=== PATIENT | female | born 1935 | race African-American/Black ===

== ENCOUNTER 2019-10-23 19:09 | Inpatient (IN) | payer MEDICARE ==
[~2019-10-23] VITALS: Ht 162.6 cm; Wt 47.6 kg
--- NOTE | 2019-10-23 19:48 | NUR ---
JEFF FROM [facility] SONIDO REEVES. PT IS RESIDENT OF [facility] AND WAS BROUGHT IN FOR ERRATIC BEHAVIOR. PT IS FOR HOLD AND ADMISSION TO [facility]. PT IS MEDICALLY CLEARED. PT IS CURRENTLY CALM. NO NOTED DISTRESS. COOPERATIVE AND COMPLIANT. WAS AT BEDSIDE FOR EVAL. AWAITING FURTHER ORDERS
--- NOTE | 2019-10-23 20:32 | NUR ---
CALLED FOR GPS BED
--- NOTE | 2019-10-23 23:18 | NUR ---
PT SON ON PHONE WITH PINKY.
--- NOTE | 2019-10-23 23:26 | NUR ---
REPORT GIVEN TO LNYN CONWAY FOR [facility]
--- NOTE | 2019-10-24 00:16 | NUR ---
PT TRANSPORTED TO UNIT ON [facility] BY EMT. PT IS IN STABLE CONDITION FOR TRANSPORT.
[2019-10-24] MEDS ORDERED: MAGNESIUM HYDROXIDE 30 ML UDC PO PRN (01:00)
[2019-10-24] MEDS ORDERED: MAG HYDROX/AL HYDROX/SIMETH 30 ML UDC PO PRN (01:00)
[2019-10-24] MEDS ORDERED: clonazePAM 0.5 MG TABLET PO PRN (01:00)
[2019-10-24] MEDS ORDERED: TEMAZEPAM 7.5 MG CAPSULE PO PRN (01:00)
[2019-10-24] MEDS ORDERED: ACETAMINOPHEN 325 MG TABLET PO PRN (01:00)
[2019-10-24] MEDS ORDERED: CHOL200076 PO (01:25)
[2019-10-24] MEDS ORDERED: SODI100037 PO (01:25)
[2019-10-24] MEDS ORDERED: BLOOD SUGAR DIAGNOSTIC 1 EACH STRIP IN ONE (01:30)
[2019-10-24 01:36] VITALS: BP 132/75
--- NOTE | 2019-10-24 02:04 | NUR ---
RN NOTES: PT. REFUSED TO INTIALLY BLOOD SUGAR CHECK , ENCOURAGED X 3 STILL STRONGLY REFUSED , PT. BEHAVIOR VERY UNCOOPERTIVE AND AGGRESSIVE.
--- NOTE | 2019-10-24 02:05 | NUR ---
ADMISSION NOTES: ADMITTED THIS 84Y/O FEMALE PATIENT ADMIT FROM [facility] ,ER / INTIALLY FROM [facility], ADMITTED TO GPS ON 5150 HOLD, PER HOLD GRAVELY DISABLE AND INCREASED AGITATION, ERRATIC BEHAVIOR AND INCREASED CONFUSIONS ,PT. HAS BEEN CALLING 911 MULTIPLE TIMES DAILY ,UPON FACE TO FACE ASSESSMENT PATIENT IS A&O X1,2 , CONFUSED ,FORGETFUL ,DISORGNIZED, UNCOOPERTIVE ,EASILY GETS AGITATED, DENIES SI /HI AT THIS TIME, PT. IS POOR HISTORIAN, POOR INSIGHT ,POOR JUDGEMENT , PT. REFUSED TO SIGNS ADMISSION CONSENT PAPERS , DUE TO CONFUSED/ UNCOOPERATIVE, PT. REFUSED INTITAALY BLOOD SUGAR CHECK , ENCOURAGED, EXPLAINED RISKS AND BENEFITS STILL REFUSED, PER PT. I DONT WANTS CHECK AT THIS TIME , BOTH MD AWARE AND NOTIFIED OF THE ADMISSION, BELONGINGS CONTRABAND WERE DONE , NURSING ASSESSMENT DONE ,PT. RIGHTS DISCUSS BY FOLD SKIVER , PROVIDE THE PT. WITH HANDBOOK, AND MEDICATIONS GUIDE, ENVIRONMENTAL SAFETY CHECK DONE, ENCOURAGED PT. VERBALIZED ANY FEELING CONCERN TO STAFF, ORIENT TO UNIT POLICY, NO ACUTE DISTRESS NOTED,VITAL SIGNS WNL ,DENIES ANY PAIN AT THIS TIME,WILL CONTINUE TO MONITOR FOR Q15 SAFETY AND BEHAVIOR.
[2019-10-24 08:00] VITALS: BP 141/77
[2019-10-24] MEDS: ENSURE ENLIVE CHOC 237 ML CAN PO SCH ×2 (08:19→17:00)
[2019-10-24] MEDS: CHOLECALCIFEROL 1,000 UNIT TABLET (VIT D3) PO SCH (10:30)
[2019-10-24] MEDS: OLANZAPINE 5 MG/TAB.RAPDIS PO SCH ×2 (10:30→17:00)
[2019-10-24] MEDS: SODIUM CHLORIDE 1000 MG TABLET PO SCH ×2 (13:00→17:38)
--- NOTE | 2019-10-24 14:48 | NUR ---
GPS/RN PT REFUSED MEDS TODAY OFFERED ON NUMEROUS OCCASIONS. PT IS ARGUMENTATIVE AND DISORGANIZED
[2019-10-24 16:00] VITALS: BP 136/76
--- NOTE | 2019-10-24 17:39 | NUR ---
GPS/RN PT REFUSED MEDS OFFERED X3. PT'S SON AT THE BEDSIDE.
[2019-10-24 19:55] VITALS: BP 110/51
[2019-10-24 22:00] VITALS: BP 112/65
[2019-10-25 08:00] VITALS: BP 127/98
[2019-10-25] MEDS: ENSURE ENLIVE CHOC 237 ML CAN PO SCH (08:00)
[2019-10-25 08:06] LABS: BASOPHILS % (AUTO) 0.9 % (0.0-2.0); EOSINOPHILS % (AUTO) 3.9 % (0.0-6.0); HEMATOCRIT 47 % (33-45); HEMOGLOBIN 15.5 g/dL (11.5-14.8); LYMPHOCYTES # (AUTO) 0.9 /CMM (0.8-4.8); LYMPHOCYTES % (AUTO) 18.1 % (20.0-44.0); MEAN CORPUSCULAR HGB CONC 33 g/dl (31.0-36.0); MEAN CORPUSCULAR VOLUME 98 fL (82-100); MONOCYTES # (AUTO) 0.6 /CMM (0.1-1.30); MONOCYTES % (AUTO) 10.8 % (2.0-12.0); NEUTROPHILS # (AUTO) 3.4 /CMM (1.8-8.9); NEUTROPHILS % (AUTO) 66.3 % (43.0-81.0); PLATELET COUNT (AUTO) 233 /CMM (150-450); RED BLOOD CELL COUNT(AUTO) 4.77 MIL/uL (4.0-5.2); WHITE BLOOD COUNT (AUTO) 5.2 K/uL (4.3-11.0)
[2019-10-25 08:29] LABS: ALBUMIN 3.4 g/dL (3.4-5.0); BILIRUBIN,TOTAL 0.5 mg/dL (0.2-1.0); CALCIUM, SERUM 10.3 mg/dL (8.5-10.1); CREATININE 0.9 mg/dL (0.6-1.3); POTASSIUM 4.2 mmol/L (3.5-5.1); TOTAL PROTEIN, SERUM 8.4 g/dL (6.4-8.2)
[2019-10-25] MEDS: OLANZAPINE 5 MG/TAB.RAPDIS PO SCH ×2 (08:34→17:12)
[2019-10-25] MEDS: CHOLECALCIFEROL 1,000 UNIT TABLET (VIT D3) PO SCH (08:34)
[2019-10-25] MEDS: SODIUM CHLORIDE 1000 MG TABLET PO SCH ×3 (08:34→17:12)
--- NOTE | 2019-10-25 12:46 | NUR ---
RN NOTE- PT REFUSING ENSURE. STATES SHE DOESN'T LIKE IT. KITCHEN NOTIFIED. WILL TELL
[2019-10-25 16:00] VITALS: BP 100/79
[2019-10-25 20:27] VITALS: BP 128/74
--- NOTE | 2019-10-26 00:15 | NUR ---
PT IS NON COOPERATIVE, REFUSED SKIN CHECK @ 8856.
[2019-10-26] MEDS: SODIUM CHLORIDE 1000 MG TABLET PO SCH ×3 (07:40→17:04)
[2019-10-26 08:00] VITALS: BP 143/75
[2019-10-26] MEDS: OLANZAPINE 5 MG/TAB.RAPDIS PO SCH ×2 (08:06→17:00)
[2019-10-26] MEDS: CHOLECALCIFEROL 1,000 UNIT TABLET (VIT D3) PO SCH (08:06)
--- NOTE | 2019-10-26 14:00 | NUR ---
FAMILY CONTACT: SW contacted pts son Temo [phone] and left a voicemail for callback to discuss pts treatment and discharge plan.
[2019-10-26 16:00] VITALS: BP 152/85
--- NOTE | 2019-10-26 16:15 | NUR ---
FACILITY CONTACT: SW contacted [facility] Address: [address] [place] [address] and spoke with Malissa, account administrator who stated that pt has a long history of mental illness and states that pt is very paranoid and was at the [facility] high risk locked unit for 8 months and was previously conserved by her granddaughter. She states that pts son is homeless and not too involved with pts care. Malissa states that pt may not be able to return as the facility is unable to handle her erratic paranoid behavior and constantly calling 911.
--- NOTE | 2019-10-26 16:21 | NUR ---
INITIAL DISCHARGE NOTE: Pt does not want to return to [facility] [address] Address: [address] [place] [address] . Per Malissa, salesforce administrator the facility is unable to handle pts erratic and paranoid behavior. SW is exploring SNF placement or alternative assisted living placement. FELIPE will help form a safe and proper discharge in collaboration with .
[2019-10-26 20:07] VITALS: BP 142/77
[2019-10-27 08:00] VITALS: BP 147/92
[2019-10-27] MEDS: CHOLECALCIFEROL 1,000 UNIT TABLET (VIT D3) PO SCH (08:18)
[2019-10-27] MEDS: SODIUM CHLORIDE 1000 MG TABLET PO SCH ×3 (08:18→17:54)
[2019-10-27] MEDS: OLANZAPINE 5 MG/TAB.RAPDIS PO SCH ×2 (08:22→17:00)
--- NOTE | 2019-10-27 09:32 | NUR ---
WOUND CARE CONSULT: PT REFUSED SKIN ASSESSMENT. PT IS CONTINENT AND AMBULATORY. ADMISSION PHOTOS SHOW PIGMENT IRREGULARITIES. WILL SEE PRN.
--- NOTE | 2019-10-27 14:41 | NUR ---
FAMILY CONTACT: SW spoke with pts son Temo [phone] and informed him that pt does not want to return to the assisted living, son states that he is aware and wishes for SW to assist with pts placement. SW informed him that she will be collaborating with a placement agent and son agreed.
--- NOTE | 2019-10-27 14:50 | NUR ---
PLACEMENT: SW received a call from Kimberly Arnold, placement agent [phone] who states she will be assisting SW with placement for pt and states that she is currently collaborating with Malissa, administer at pts assisted living.
--- NOTE | 2019-10-27 15:53 | NUR ---
GROUP NOTE: FELIPE encouraged pt to attend group on this present day discussing "unstable mood" Pt refused to attend stating, "It's no ones business to hear about how I am doing." FELIPE provided individual intervention and asked pt how she was feeling today. Pt states she is sad because her roommate left today and she will be alone with no one to talk to. Pt also states that she does not need to be here and wants to be discharged soon but is aware that SW is trying to assist with placement. FELIPE informed her that SW spoke with her son regarding her placement and that he wishes to be notified as soon as placement is found to ensure pt will be okay at her new facility. Pt states that she now feels better knowing she wont have to return to the assisted living she came from.
[2019-10-27 16:00] VITALS: BP 148/79
--- NOTE | 2019-10-27 17:27 | NUR ---
RN NOTE- POLICE ARRIVED TO UNIT. PT HAD CALLED POLICE AND REPORTED THAT SHES NOT "RECEIVING HER MEDICATIONS" AND OTHER COMPLAINTS. SECURITY ON SITE. UPDATED POLICE ON PT SITUATION AND STATUS. GUM REMOVER AWARE AND CONCURS. POLICE AND SECURITY INTERVIEWING PT IN SECLUSION ROOM.
[2019-10-27 19:35] VITALS: BP 155/93
[2019-10-28 08:00] VITALS: BP 130/79
--- NOTE | 2019-10-28 08:16 | NUR ---
PLACEMENT: FELIPE faxed clinicals to Kimberly Arnold, placement agent [phone] F:[phone] for placement.
[2019-10-28] MEDS: OLANZAPINE 5 MG/TAB.RAPDIS PO SCH ×4 (08:45→17:59)
[2019-10-28] MEDS: SODIUM CHLORIDE 1000 MG TABLET PO SCH ×3 (08:45→18:00)
[2019-10-28] MEDS: CHOLECALCIFEROL 1,000 UNIT TABLET (VIT D3) PO SCH (08:46)
--- NOTE | 2019-10-28 15:15 | NUR ---
Group Note: Pt attended a group session on 10/28/19 at 2PM discussing suicidal ideation and urges. S: I have never considered suicide myself because I believe in Yuan and that is not accepted in [place]. I did have a brother who committed suicide. He thought that no one cared about him or loved him but he was actually my favorite brother. I wish he knew that. O: Pt was present during the group session and was cooperative. Pt appeared to be in a euthymic mood and presented with an anxious affect. Pt was attentive and provided feedback to all of the other patients who attended. Pt appeared to be hyperverbal and tangential. Pt had to be redirected multiple times back to the topic. A: Pt stated that she understands that people have feelings that lead them to taking their lives. Pt expressed that she wishes that more individuals would talk to each other when they are still alive and receive the help that they need before it is too late. Pt expressed her grief towards losing her brother. P: Pt will continue milieu treatment and medication stabilization.
[2019-10-28 16:00] VITALS: BP 128/69
[2019-10-28 20:00] VITALS: BP 106/62
--- NOTE | 2019-10-28 20:00 | NUR ---
RECEIVED PT.WALKING AROUND IN THE UNIT. A/OX1, PT IS ANXIOUS,IRRITABLE, CONFUSED,PARANOID REDIRECTABLE, REORIENTATION PROVIDED. DENIES SI/HI AT THIS TIME, NO AGITATION NOTED. FALL PRECAUTIONS IMPLEMENTED. ALL NEEDS ATTENDED AND ANTICIPATED,ENCOURAGE PT. TO VERBALIZED ANY FEELING OR CONCERN , WILL CONTINUE TO MONITOR Q15MIN FOR MOOD, SAFETY AND BEHAVIOR.
--- NOTE | 2019-10-29 07:13 | NUR ---
RN NOTES : PT. RESETING IN HER BED, NO ACUTE DISTRESS NOTED , DENIED ANY DISCOMFORT AT THIS TIME , IN DURING SHIFT NO BEHAVIOR PROBLEMS NOTED , ENDORSE TO DAY NURSE FOR CONTINUIYT OF CARE.
[2019-10-29 08:00] VITALS: BP 119/64
[2019-10-29] MEDS: SODIUM CHLORIDE 1000 MG TABLET PO SCH ×3 (08:27→17:14)
[2019-10-29] MEDS: CHOLECALCIFEROL 1,000 UNIT TABLET (VIT D3) PO SCH (08:27)
[2019-10-29] MEDS: OLANZAPINE 5 MG/TAB.RAPDIS PO SCH ×2 (08:27→17:14)
--- NOTE | 2019-10-29 08:29 | NUR ---
SNF REFERRAL: FELIPE faxed SNF referral to [facility] Address: [address] [place] [address] for review.
--- NOTE | 2019-10-29 14:08 | NUR ---
RN-CO: DR GARCIA DISCONTINUED RIESE FILLING BEC THE PATIENT IS TAKING HER MEDICATIONS.
--- NOTE | 2019-10-29 15:01 | NUR ---
GROUP NOTE: SW encouraged pt to attend group on this present day discussing "discharge planning." Pt refused to attend, and was irritable when SW encouraged pt to attend. Pt was in the bathroom talking on the phone and appeared paranoid when SW asked her to step outside. Pt stated, "leave me alone it's none of your business what I'm doing."
[2019-10-29 16:00] VITALS: BP 139/63
--- NOTE | 2019-10-29 20:00 | NUR ---
GPS/NURSING NOTES: PT. IN HER ROOM AWAKE. NO DISTRESS OR AGITATION NOTED. QUIET AND COOPERATIVE AT THIS TIME. NO C/O PAIN OR DISCOMFORT. SAFETY ENVIRONMENT OBSERVED AT ALL TIMES. WILL CONTINUE TO MONITOR Q 15 MIN FOR SAFETY AND BEHAVIOR.
[2019-10-29 20:20] VITALS: BP 127/55
[2019-10-30 08:00] VITALS: BP 120/87
[2019-10-30] MEDS: CHOLECALCIFEROL 1,000 UNIT TABLET (VIT D3) PO SCH (08:27)
[2019-10-30] MEDS: SODIUM CHLORIDE 1000 MG TABLET PO SCH ×3 (08:27→17:03)
[2019-10-30] MEDS: OLANZAPINE 5 MG/TAB.RAPDIS PO SCH ×2 (08:27→17:03)
--- NOTE | 2019-10-30 08:30 | NUR ---
FAMILY CONTACT: FELIPE contacted pts son Temo [phone] and left a voicemail informing him pt will be having a Probable Cause Hearing on this present day.
--- NOTE | 2019-10-30 08:44 | NUR ---
SNF REFERRAL: SW received a call from Toni exhibits coordinator at [facility] Address: [address] [place] [address] stating pt has been accepted to the facility.
--- NOTE | 2019-10-30 10:10 | NUR ---
GPS/RN PT WAS COMPLIANT WITH MEDS TODAY , HOWEVER ARGUMENTATIVE REGARDING ZYPREXA PO. EXPLAINED BENEFITS AND SIDE EFFECTS ON ZYPREXA
--- NOTE | 2019-10-30 14:57 | NUR ---
FAMILY CONTACT: SW contacted pts son Temo [phone] and left a voicemail for callback to discuss pts discharge plan.
--- NOTE | 2019-10-30 15:12 | NUR ---
PLACEMENT: FELIPE contacted Kimberly Arnold, placement agent [phone] and left a voicemail for callback.
[2019-10-30 16:00] VITALS: BP 156/74
--- NOTE | 2019-10-30 19:30 | NUR ---
GPS OPENING NOTE: PATIENT IN BED RESTING, IN NO APPARENT DISTRESS NOTED. ALERT AND ORIENTED X2, WITH EPISODES OF FORGETFULNESS. REORIENTATION PROVIDED. SAFETY PRECAUTIONS IMPLEMENTED. BED ALARM ON AND IN LOCKED POSITION. WILL CONTINUE TO MONITOR FOR PATIENT'S SAFETY.
[2019-10-30 20:00] VITALS: BP 105/64
--- NOTE | 2019-10-31 06:13 | NUR ---
GPS RN CLOSING NOTE: PATIENT IN BED ASLEEP, AROUSES EASILY. NO ACUTE DISTRESS NOTED. DENIES PAIN OR DISCOMFORT. NO AGITATION NOTED. DENIES SI/HI/AVH AT THIS TIME. SAFETY PRECAUTIONS IMPLEMENTED. BED ALARM ON AND IN LOCKED POSITION. WILL CONTINUE TO MONITOR FOR PT'S SAFETY.
[2019-10-31 08:00] VITALS: BP 125/71
[2019-10-31] MEDS: OLANZAPINE 5 MG/TAB.RAPDIS PO SCH ×2 (08:21→20:08)
[2019-10-31] MEDS: SODIUM CHLORIDE 1000 MG TABLET PO SCH ×3 (08:21→17:18)
[2019-10-31] MEDS: CHOLECALCIFEROL 1,000 UNIT TABLET (VIT D3) PO SCH (08:21)
[2019-10-31 16:01] VITALS: BP 101/64
--- NOTE | 2019-10-31 19:31 | NUR ---
GPS OPENING NOTE: PATIENT IN BED RESTING COMFORTABLY, IN NO APPARENT DISTRESS NOTED. ALERT AND ORIENTED X2, WITH EPISODES OF FORGETFULNESS. DENIES SI/HI /AVH AT THIS TIME. REORIENTATION PROVIDED. SAFETY PRECAUTIONS IMPLEMENTED. BED ALARM ON AND IN LOCKED POSITION. WILL CONTINUE TO MONITOR FOR PATIENT'S SAFETY.
[2019-10-31 20:00] VITALS: BP 116/73
[2019-11-01 08:00] VITALS: BP 155/72
[2019-11-01] MEDS: SODIUM CHLORIDE 1000 MG TABLET PO SCH ×4 (08:00→18:12)
[2019-11-01] MEDS: OLANZAPINE 2.5 MG TABLET PO SCH ×2 (08:56→09:00)
[2019-11-01] MEDS: CHOLECALCIFEROL 1,000 UNIT TABLET (VIT D3) PO SCH ×2 (08:56→09:00)
--- NOTE | 2019-11-01 15:00 | NUR ---
RN-CO: PATIENT REFUSED TO PROVIDE URINE SPECIMEN.
[2019-11-01 15:28] LABS: BASOPHILS % (AUTO) 0.6 % (0.0-2.0); EOSINOPHILS % (AUTO) 2.8 % (0.0-6.0); HEMATOCRIT 38 % (33-45); HEMOGLOBIN 12.7 g/dL (11.5-14.8); LYMPHOCYTES # (AUTO) 1.3 /CMM (0.8-4.8); LYMPHOCYTES % (AUTO) 20.9 % (20.0-44.0); MEAN CORPUSCULAR HGB CONC 34 g/dl (31.0-36.0); MEAN CORPUSCULAR VOLUME 97 fL (82-100); MONOCYTES # (AUTO) 0.9 /CMM (0.1-1.30); MONOCYTES % (AUTO) 13.7 % (2.0-12.0); PLATELET COUNT (AUTO) 176 /CMM (150-450); WHITE BLOOD COUNT (AUTO) 6.4 K/uL (4.3-11.0)
[2019-11-01 16:00] VITALS: BP 165/87
[2019-11-01 16:09] LABS: ALBUMIN 3.3 g/dL (3.4-5.0); BILIRUBIN,TOTAL 0.2 mg/dL (0.2-1.0); CALCIUM, SERUM 9.7 mg/dL (8.5-10.1); CREATININE 0.7 mg/dL (0.6-1.3); POTASSIUM 4.5 mmol/L (3.5-5.1); TOTAL PROTEIN, SERUM 7.9 g/dL (6.4-8.2)
--- NOTE | 2019-11-01 18:22 | NUR ---
PATIENT REFUSED TO PROVIDE URINE SPACEMEN.
[2019-11-01 20:09] VITALS: BP 115/66
[2019-11-01] MEDS: OLANZAPINE 5 MG/TAB.RAPDIS PO SCH (21:15)
[2019-11-02 06:42] LABS: APPEARANCE,URINE CLEAR (CLEAR); BILIRUBIN,URINE NEGATIVE (NEGATIVE); BLOOD, URINE NEGATIVE Ery/uL (NEGATIVE); COLOR,URINE YELLOW (YELLOW); KETONES,URINE NEGATIVE (NEGATIVE); LEUKOCYTE ESTERASE ,URINE NEGATIVE (NEGATIVE); NITRITE, URINE NEGATIVE (NEGATIVE); PROTEIN,URINE NEGATIVE (NEGATIVE); UGLUCOSE NEGATIVE (NEGATIVE); UROBILINOGEN,URINE 0.2 EU/dL (0.2)
[2019-11-02 08:00] VITALS: BP 160/78
[2019-11-02] MEDS: SODIUM CHLORIDE 1000 MG TABLET PO SCH ×3 (08:00→17:49)
[2019-11-02] MEDS: CHOLECALCIFEROL 1,000 UNIT TABLET (VIT D3) PO SCH (08:00)
[2019-11-02] MEDS: OLANZAPINE 2.5 MG TABLET PO SCH (08:07)
--- NOTE | 2019-11-02 09:34 | NUR ---
APS: FELIPE received a voicemail from [facility] APS older adult social work specialist Yocasta [phone] requesting discharge information. FELIPE returned the call and left a voicemail for callback. Addendum: 11/03/19 at 1044 by RIMA WANG An Castillo [phone]
--- NOTE | 2019-11-02 09:43 | NUR ---
GPS NURSING NOTE: RECEIVED PATIENT IN BEDROOM. PATIENT IS AOX2 TO PERSON PLACE. CONFUSED AT TIMES. PARANOID IDEATION PRESENT. REFUSING ZYPREXA THIS MORNING. PRESENTS WITH BRIGHT MOOD. DENIES SI/HI, NO S/S OF ACUTE DISTRESS NOTED. DENIES PAIN FALL PRECAUTIONS IMPLEMENTED. WILL CONTINUE TO MONITOR Q15MIN FOR MOOD, SAFETY AND BEHAVIOR.
--- NOTE | 2019-11-02 14:58 | NUR ---
FAMILY CONTACT: SW contacted pts son Temo [phone] and left a voicemail for callback to discuss pts discharge plan.
--- NOTE | 2019-11-02 15:02 | NUR ---
GROUP NOTE: SW encouraged pt to attend group on this present day discussing "mood-regulation." Pt refused to attend, and was irritable when SW encouraged pt to attend saying, "girl no one needs to know my business." Pt is paranoid and becomes agitated when questioned about her discharge and medication compliance.
--- NOTE | 2019-11-02 15:12 | NUR ---
PLACEMENT: FELIPE contacted Kimberly Arnold, placement agent [phone] to inquire on placement options for pt and left a voicemail for callback.
[2019-11-02 16:00] VITALS: BP 139/79
--- NOTE | 2019-11-02 20:25 | NUR ---
GPS OPENING NOTES: RECEIVED PATIENT AWAKE,ALERT AND ORIENTED X 1-2, HYPERVERBAL, DISORGANIZED, EASILY AGITATED, LABILE, REDIRETIBLE, DENIES SI/HI, NO SOB, NO ACUTE DISTRESS, BREATHING EVEN AND UNLABORED, NO S/S OF PAIN AND DISCOMFORT, WILL CONTINUE TO MONITOR Q15 MINS FOR SAFETY
[2019-11-02 20:51] VITALS: BP 135/70
[2019-11-02] MEDS: OLANZAPINE 5 MG/TAB.RAPDIS PO SCH (21:00)
--- NOTE | 2019-11-02 21:15 | NUR ---
GPS RN NOTE: MEDICATION REFUSAL PATIENT REFUSED ZYPREXA, EXPLAINED THE RISK AND BENEFITS X 3 ATTEMPTS BUT PATIENT STILL REFUSED AND STATED "I HAVE THE RIGHT TO REFUSED SO IM REFUSING IT, I DON'T TAKE ZYPREXA, I WILL NOT TAKE IT AND I DON'T NEED IT". WILL CONTINUE TO MONITOR Q15 MINS FOR SAFETY
[2019-11-03 08:00] VITALS: BP 135/68
[2019-11-03] MEDS: SODIUM CHLORIDE 1000 MG TABLET PO SCH ×3 (08:00→18:22)
[2019-11-03] MEDS: OLANZAPINE 2.5 MG TABLET PO SCH (09:00)
[2019-11-03] MEDS: CHOLECALCIFEROL 1,000 UNIT TABLET (VIT D3) PO SCH (09:18)
--- NOTE | 2019-11-03 10:48 | NUR ---
APS: FELIPE received a call from pts APS social science research assistant An Castillo [phone] who requested discharge information. SW informed her pt will be discharged tomorrow Saturday11/04/19 to [facility].
--- NOTE | 2019-11-03 14:08 | NUR ---
FAMILY CONTACT: FELIPE contacted pts son Temo [phone] and left a voicemail informing him pt will be discharged tomorrow Saturday11/04/19 at 1:00pm to [facility].
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
[2019-11-03 16:00] VITALS: BP 126/76
--- NOTE | 2019-11-03 16:07 | NUR ---
FAMILY CONTACT: SW received a call from pts granddaughter Rosaline [phone] stating that she does not agree with pts discharge and that even though she has not called SW or collaborated with her she informed the nurse that she was looking for placement for pt. SW informed her that the nurse did not relay that information to SW and that due to no family involvement in the past 10 days of pts hospitalization the MD and SW discussed pts discharge and it was recommended by MD that pt should be discharged to a SNF. SW explained that SNF placement is short Term and that she is able to coordinate moth exterminator placement with staff at the SNF. Granddaughter agreed.
--- NOTE | 2019-11-03 16:35 | NUR ---
FAMILY CONTACT: SW received a call from pts son Temo [phone] stating that he refused for SW to discharge pt tomorrow and that he wanted pt to be here for another 10 days until pts granddaughter found placement for her or [facility]. SW explained that pt not longer met criteria and she could not stay here another 10 days if she no longer met criteria. Son stated that SW was violating pts civil rights and that he was going to chela the SW for discharging her. SW stated that MD has ordered pts discharge and that if family refuses a Medicare Letter of Denial will be given. Son became verbally aggressive and SW had to end the call.
[2019-11-03] MEDS: OLANZAPINE 5 MG/TAB.RAPDIS PO SCH (21:00)
[2019-11-03 23:19] VITALS: BP 164/86
[2019-11-04 08:00] VITALS: BP 146/81
--- NOTE | 2019-11-04 08:15 | NUR ---
Family Contact: SW called the pts son, Temo ([phone]), and left a voicemail stating that the SW would like to discuss the pts discharge.
[2019-11-04] MEDS: SODIUM CHLORIDE 1000 MG TABLET PO SCH (08:47)
[2019-11-04] MEDS: CHOLECALCIFEROL 1,000 UNIT TABLET (VIT D3) PO SCH (08:48)
--- NOTE | 2019-11-04 09:05 | NUR ---
Family Contact: Pts son, Temo ([phone]), called the SW back and stated that he would like the pts discharge to get pushed because they do not know the facility that the pt is being sent to and they want the pt to go to a [facility] facility. SW stated that the pt has a discharge order for today and placement was found so the discharge is not going to be pushed. SW also stated that it takes a long time to get accepted to a [facility] facility and the pt does not have time at this hospital anymore. Pts son stated, "Okay thank you very much" and then ended the call. SW will proceed with the pts discharge.
--- NOTE | 2019-11-04 10:10 | NUR ---
Dr. Stafford gave an order to D/C hold and D/C to [facility] and to follow up with psych and medical docotors and to continue same meds including prn.
--- NOTE | 2019-11-04 11:07 | NUR ---
Individual Intervention with the pt: SW spoke to the pt about her discharge plan and explained what the fpc entails. Pt became agitated and verbally aggressive and stated that she was not consulted about her discharge since the day that she came and she was unsure of why she was even placed in the hospital to begin with. Pt stated that she was upset that her family was never consulted and the SW stated that she is aware that her SW had contacted her family and even stated that this song writer herself has been in contact with her son. SW stated that the pt has a discharge date for today and to a discharge location that was recommended by her MD and by her SW. Pt became agitated and refused to be discharged until she received all the information about her stay in the hospital. Pt refused to sign the Choice of Vendor form as a result.
--- NOTE | 2019-11-04 11:20 | NUR ---
Family Contact: Pts son, Temo ([phone]), called the SW back and stated that he wanted to speak about the pts discharge at length. SW explained that the pts discharge cannot be pushed back because she is currently at the highest level of care and no longer meets criteria to be inpatient per her MD. SW stated that the nursing facility is a safe discharge location that will allow the pt to continue receiving the care that she needs. SW stated that this is a short term placement option if the family is interested in eventually placing the pt at a [place] facility. Pts son agreed to the placement and thanked the SW for the discharge explanation.
[2019-11-04 12:00] VITALS: BP 150/88
--- NOTE | 2019-11-04 12:27 | NUR ---
pt discharge by dr hills. dc hold. activities aide agrees with discharge. pt going to [facility]. report given to receiving nurse, bal zheng. pt is alert oriented x 1 and ambulatory. calm and cooperative. no acute distress noted. denies h/i and/or s/i at time of discharge. belongings returned. refuse skin assessment. medication reconciled. exitcare completed. notified family of discharge. pt left in stable condition.
--- NOTE | 2019-11-04 15:47 | NUR ---
Discharge Note: Pt was discharged to [facility] ([facility]) located at [address] [place] [address]; ([phone]). Pt was transported via [facility] 11:45AM. SW spoke to the pts son, Temo ([phone]), and informed him about the discharge and he agreed to the placement. Upon discharge, the pt appeared to be in a dysphoric mood with an agitated affect. At discharge, the pt denied both suicidal and homicidal ideation as well as both auditory and visual hallucinations. Pt will be under the care of psychiatrist, Dr. Martinez, located at [address], [place] [address]; and his air defence officer, Dr. Clemente, located at [address] [facility] [address] [facility] [address], [place] [address]; . Pt refused to sign her Choice of Vendor form.
== END 2019-11-04 12:25 | DRG 885 ==
LOC: ER 19:14 → GPS 10-24 00:03
PROVIDERS: ADMIT Psychiatry & Neurology Psychiatry; ATTEND Nurse Practitioner Acute Care
DX: F20.0 Paranoid schizophrenia (principal); M32.9 Systemic lupus erythematosus, unspecified; E44.1 Mild protein-calorie malnutrition; F41.9 Anxiety disorder, unspecified; F03.90 Unspecified dementia, unspecified severity, without behavioral disturbance, psychotic disturbance, mood disturbance, and anxiety; Z88.5 Allergy status to narcotic agent; Z88.0 Allergy status to penicillin; R45.1 Restlessness and agitation; Z73.6 Limitation of activities due to disability; Z86.39 Personal history of other endocrine, nutritional and metabolic disease; R79.89 Other specified abnormal findings of blood chemistry
CPT/HCPCS: 36415; 80053-TC; 80061-TC; 81000-TC; 85025-TC; 87081-TC; 87086-TC; 97116-TC; 97530-TC